=== PATIENT | male | born 1950 | race Caucasian/White ===

== ENCOUNTER 2021-10-19 15:39 | Inpatient (IN) | payer OTHER ==
[~2021-10-19] VITALS: Ht 180.3 cm; Wt 137.4 kg
[2021-10-19] MEDS ORDERED: SODIUM CHLORIDE 0.9% 2,000 ML IV ONE (17:00)
[2021-10-19 17:19] LABS: Basophils # (auto) 0 10 ^3/uL (0-0.2); Basophils % (auto) 0.5 % (0.0-2.0); Eosinophils # (auto) 0 10 ^3/uL (0-0.8); Lymphocytes # (auto) 1.5 10 ^3/uL (0.4-5.4); Monocytes # (auto) 0.9 10 ^3/uL (0-1.3); Neutrophils # (auto) 6.7 10 ^3/uL (1.6-8.6)
[2021-10-19 17:20] LABS: Eosinophils % (auto) 0.5 % (0.0-7.0); Hematocrit 60.2 % (41.0-53.0); Hemoglobin 19.1 g/dL (13.5-17.5); Lymphocytes % (auto) 16.3 % (10.0-50.0); Mean Corpuscular Hemoglobin 28.9 pg (28.0-32.0); Mean Corpuscular Hgb Conc. 31.8 g/dL (32.0-36.0); Mean Corpuscular Volume 90.8 fL (80.0-100.0); Monocytes % (auto) 10.2 % (0.0-12.0); Neutrophils % (auto) 72.5 % (37.0-80.0); Nucleated Red Blood Cells % 0.2 %; Red Blood Cells 6.63 10^6/uL (4.5-5.90); Red Cell Distribution Width 14.8 % (11.8-14.3); White Blood Cell 9.2 10^3/uL (4.4-10.8)
[2021-10-19 17:41] LABS: Albumin 4.7 g/dL (3.4-5.0); Calcium 11.1 mg/dL (8.5-10.1); Potassium 4.8 mmol/L (3.5-5.1)
[2021-10-19 17:44] LABS: BUN/Creatinine Ratio 9.9; Bilirubin, Total 0.7 mg/dL (0.2-1.0); Total Protein 9.1 g/dL (6.4-8.2)
[2021-10-19 18:57] LABS: Lactic Acid w/Reflex 3.7 mmol/L (0.4-2.0)
[2021-10-19] MEDS ORDERED: SODIUM CHLORIDE 0.9% 1,000 ML IV ONE (20:00)
[2021-10-19] MEDS ORDERED: DOCUSATE SOD 100 MG CAP PO PRN (22:30)
[2021-10-19] MEDS ORDERED: CITA-73 PO (22:30)
[2021-10-19] MEDS ORDERED: NITROGLYCERIN 0.4 MG SL TAB SL PRN (22:30)
[2021-10-19] MEDS ORDERED: ONDANSETRON HCL 4 MG/2 ML VIAL IV PRN (22:30)
[2021-10-19] MEDS ORDERED: MORPHINE SULFATE INJ 2 MG/ml SYRG IV PRN (22:30)
[2021-10-19] MEDS ORDERED: APIX5TAB PO (22:30)
[2021-10-19] MEDS ORDERED: SODIUM CHLORIDE 0.9% 1,000 ML IV SCH (22:30)
[2021-10-19] MEDS ORDERED: METF-372 PO (22:30)
[2021-10-19] MEDS ORDERED: ACETAMINOPHEN 325 MG TAB PO PRN (22:30)
[2021-10-19] MEDS ORDERED: DEXTROSE (50%) 50ML SYRG IV PRN (23:00)
[2021-10-19] MEDS: APIXABAN 5 MG TAB PO SCH (23:40)
[2021-10-20 06:20] LABS: BUN/Creatinine Ratio 14.4; Calcium 9.3 mg/dL (8.5-10.1)
[2021-10-20 06:30] LABS: Basophils # (auto) 0.1 10 ^3/uL (0-0.2); Basophils % (auto) 0.5 % (0.0-2.0); Eosinophils # (auto) 0.1 10 ^3/uL (0-0.8); Eosinophils % (auto) 1.4 % (0.0-7.0); Hematocrit 51.4 % (41.0-53.0); Hemoglobin 16.8 g/dL (13.5-17.5); Lymphocytes # (auto) 2.6 10 ^3/uL (0.4-5.4); Lymphocytes % (auto) 27.1 % (10.0-50.0); Mean Corpuscular Hemoglobin 29.5 pg (28.0-32.0); Mean Corpuscular Hgb Conc. 32.6 g/dL (32.0-36.0); Mean Corpuscular Volume 90.2 fL (80.0-100.0); Monocytes # (auto) 1.1 10 ^3/uL (0-1.3); Monocytes % (auto) 11.5 % (0.0-12.0); Neutrophils # (auto) 5.7 10 ^3/uL (1.6-8.6); Neutrophils % (auto) 59.5 % (37.0-80.0); Red Cell Distribution Width 14.6 % (11.8-14.3); White Blood Cell 9.5 10^3/uL (4.4-10.8)
[2021-10-20] MEDS: ACCU-CHEK COMFORT CURVE STRIP VI SCH ×4 (06:47→21:17)
[2021-10-20] MEDS: InsuLIN REG 1unit/0.01ml Soln (100units/ml) SC SCH ×4 (06:51→21:17)
[2021-10-20] MEDS ORDERED: metFORMIN HYDROCHLORIDE 500 MG TAB PO SCH (08:00)
[2021-10-20 08:01] LABS: Urine Bacteria FEW /hpf (None Seen); Urine Blood 1+ /uL (Negative); Urine Hyaline Cast FEW /lpf (0 - 2); Urine Specific Gravity 1.017 (1.001-1.035); Urine WBC 4 /hpf (0 - 3)
[2021-10-20 09:00] VITALS: BP 117/75
[2021-10-20] MEDS ORDERED: PATIENTS OWN MEDICATION (Citalopram Hydrobromide 1 TAB) PO SCH (10:00)
[2021-10-20] MEDS ORDERED: PATIENTS OWN MEDICATION (Metformin Hydrochloride (Metformin Hcl) 1 TAB) PO SCH (10:00)
[2021-10-20] MEDS ORDERED: APIXABAN 5 MG TAB PO SCH (10:00)
[2021-10-20] MEDS: CITALOPRAM HYDROBR 20 MG TAB PO SCH (10:07)
[2021-10-20] MEDS: APIXABAN 5 MG TAB PO SCH ×2 (10:08→21:12)
[2021-10-20] MEDS: METOPROLOL TARTRATE 25 MG TAB PO SCH ×2 (10:10→20:57)
[2021-10-20 13:00] VITALS: BP 107/71
[2021-10-20 14:01] VITALS: BP 116/68
[2021-10-20] MEDS ORDERED: LISI30TA4 PO (14:13)
[2021-10-20] MEDS ORDERED: METO-159 PO (14:13)
[2021-10-20] MEDS: SODIUM BICARBONATE 50ML VIAL 50 ML in SOD CHL 0.45% 1,000 ML IV SCH ×3 (16:34→23:28)
[2021-10-20 17:21] VITALS: BP 111/75
[2021-10-20 17:29] LABS: Hepatitis C Antibody Negative (Negative)
[2021-10-20 22:00] VITALS: BP 118/74
[2021-10-21 05:08] VITALS: BP 111/66
[2021-10-21] MEDS: ACCU-CHEK COMFORT CURVE STRIP VI SCH ×4 (06:19→23:03)
[2021-10-21 06:22] LABS: Potassium 4.8 mmol/L (3.5-5.1)
[2021-10-21 06:33] LABS: Albumin 3.4 g/dL (3.4-5.0); BUN/Creatinine Ratio 23.1; Bilirubin, Total 0.9 mg/dL (0.2-1.0); Calcium 9.1 mg/dL (8.5-10.1); Total Protein 6.6 g/dL (6.4-8.2)
[2021-10-21] MEDS: InsuLIN REG 1unit/0.01ml Soln (100units/ml) SC SCH ×4 (06:42→22:00)
[2021-10-21] MEDS ORDERED: DIGOXIN (250MCG/ML) 2 ML AMPULE IV ONE (08:30)
[2021-10-21 09:00] VITALS: BP 132/82
[2021-10-21] MEDS: AMIODARONE HCL 200 MG TAB PO SCH ×2 (09:09→23:01)
[2021-10-21] MEDS: METOPROLOL TARTRATE 50 MG TAB PO SCH ×2 (09:09→23:02)
[2021-10-21] MEDS: APIXABAN 5 MG TAB PO SCH ×2 (09:09→23:02)
[2021-10-21] MEDS: CITALOPRAM HYDROBR 20 MG TAB PO SCH (09:10)
[2021-10-21 13:00] VITALS: BP 125/85
[2021-10-21] MEDS: SODIUM BICARBONATE 50ML VIAL 50 ML in SOD CHL 0.45% 1,000 ML IV SCH ×2 (14:49→17:30)
[2021-10-21 17:00] VITALS: BP 116/62
[2021-10-21 22:00] VITALS: BP 112/66
[2021-10-22] MEDS: SODIUM BICARBONATE 50ML VIAL 50 ML in SOD CHL 0.45% 1,000 ML IV SCH ×2 (00:11→07:45)
[2021-10-22 05:00] VITALS: BP 109/64
[2021-10-22 05:38] LABS: Albumin 3.4 g/dL (3.4-5.0); BUN/Creatinine Ratio 24.6; Calcium 9.1 mg/dL (8.5-10.1)
[2021-10-22 05:40] LABS: Bilirubin, Total 0.8 mg/dL (0.2-1.0); Total Protein 6.6 g/dL (6.4-8.2)
[2021-10-22] MEDS: ACCU-CHEK COMFORT CURVE STRIP VI SCH ×4 (06:03→21:34)
[2021-10-22] MEDS: InsuLIN REG 1unit/0.01ml Soln (100units/ml) SC SCH ×4 (06:04→21:41)
[2021-10-22 08:42] VITALS: BP 127/72
[2021-10-22] MEDS: AMIODARONE HCL 200 MG TAB PO SCH ×2 (09:43→21:33)
[2021-10-22] MEDS: CITALOPRAM HYDROBR 20 MG TAB PO SCH (09:43)
[2021-10-22] MEDS: METOPROLOL TARTRATE 50 MG TAB PO SCH ×2 (09:44→21:34)
[2021-10-22] MEDS: APIXABAN 5 MG TAB PO SCH ×2 (09:44→21:34)
[2021-10-22 13:18] VITALS: BP 137/87
[2021-10-22 22:00] VITALS: BP 130/87
[2021-10-23 05:00] VITALS: BP 111/73
[2021-10-23] MEDS: ACCU-CHEK COMFORT CURVE STRIP VI SCH ×2 (06:12→11:12)
[2021-10-23] MEDS: InsuLIN REG 1unit/0.01ml Soln (100units/ml) SC SCH ×2 (06:12→11:12)
[2021-10-23 06:26] LABS: Albumin 3.5 g/dL (3.4-5.0); Calcium 9.3 mg/dL (8.5-10.1); Potassium 4.7 mmol/L (3.5-5.1)
[2021-10-23 06:31] LABS: Bilirubin, Total 1.1 mg/dL (0.2-1.0); Total Protein 6.8 g/dL (6.4-8.2)
[2021-10-23 08:00] VITALS: BP 130/86
[2021-10-23] MEDS ORDERED: AMIO200T33 PO (08:46)
[2021-10-23] MEDS ORDERED: APIX5TAB PO (08:46)
[2021-10-23] MEDS ORDERED: METO-159 PO (08:46)
[2021-10-23] MEDS ORDERED: CITA10TA8 PO (08:46)
[2021-10-23 08:57] VITALS: BP 130/86
[2021-10-23] MEDS: APIXABAN 5 MG TAB PO SCH (09:42)
[2021-10-23] MEDS: AMIODARONE HCL 200 MG TAB PO SCH (09:42)
[2021-10-23] MEDS: CITALOPRAM HYDROBR 20 MG TAB PO SCH (09:42)
[2021-10-23] MEDS: METOPROLOL TARTRATE 50 MG TAB PO SCH (09:43)
[2021-10-23 12:12] VITALS: BP 130/84
[2021-10-23 12:45] VITALS: BP 130/84
== END 2021-10-23 13:20 | disposition home or self-care (01) | DRG 640 ==
LOC: ER 15:51 → TELE 21:19 → UNDOADMIN 22:16 → TELE 22:16 → TELE-CENTR 10-20 09:15
PROVIDERS: ADMIT Nurse Practitioner Family; ATTEND Family Medicine
DX: E86.0 Dehydration (principal); N17.0 Acute kidney failure with tubular necrosis; Z68.41 Body mass index [BMI] 40.0-44.9, adult; N18.4 Chronic kidney disease, stage 4 (severe); E87.2 Acidosis; R19.7 Diarrhea, unspecified; E11.22 Type 2 diabetes mellitus with diabetic chronic kidney disease; Z20.822 Contact with and (suspected) exposure to COVID-19; E66.01 Morbid (severe) obesity due to excess calories; E78.5 Hyperlipidemia, unspecified; E83.52 Hypercalcemia; F32.A Depression, unspecified; I12.9 Hypertensive chronic kidney disease with stage 1 through stage 4 chronic kidney disease, or unspecified chronic kidney disease; I48.91 Unspecified atrial fibrillation; Z79.01 Long term (current) use of anticoagulants; Z79.84 Long term (current) use of oral hypoglycemic drugs; Z82.49 Family history of ischemic heart disease and other diseases of the circulatory system; Z83.3 Family history of diabetes mellitus; Z88.2 Allergy status to sulfonamides
CPT/HCPCS: 36415; 71045; 76775; 80048; 80053; 81001; 82306; 82962; 83036; 83605; 83735; 83880; 83970; 84100; 84484; 85025; 86803; 87040; 87340; 93005; 96360; 96361; G0378; J1815